=== PATIENT | male | born 1985 | race Caucasian/White ===

== ENCOUNTER 2017-05-13 11:21 | Emergency (ER) | payer BC, OTHER ==
[2017-05-13] MEDS ORDERED: Ketorolac 30 MG/ML SDV IM ONE (11:29)
--- NOTE | 2017-05-13 11:31 | EDM.PDOC ---
ED HPI GENERAL MEDICAL PROBLEM - General Chief Complaint: General Stated Complaint: PAIN IN RIBS FROM FALL Time Seen by Provider: 05/13/17 11:24 - History of Present Illness INITIAL COMMENTS - FREE TEXT/NARRATIVE: HISTORY AND PHYSICAL: History of present illness: Patient 31-year-old white male presents status post fall in which he injured his right ribs on Thanksgiving he denies other trauma or concern this injury was confined to his right ribs is worse with palpation and movement he denies abdominal pain nausea vomiting or other concern Review of systems: As per history of present illness and below otherwise all systems reviewed and negative. Past medical history: As per history of present illness and as reviewed below otherwise noncontributory. Surgical history: As per history of present illness and as reviewed below otherwise noncontributory. Social history: No reported history of drug or alcohol abuse. Family history: As per history of present illness and as reviewed below otherwise noncontributory. Physical exam: HEENT: Atraumatic, normocephalic, pupils reactive, negative for conjunctival pallor or scleral icterus, mucous membranes moist, throat clear, neck supple, nontender, trachea midline. Lungs: Clear to auscultation, breath sounds equal bilaterally, right ribs tender in the region of the sixth seventh and eighth ribs anterior axillary line crepitation over Heart: S1S2, regular, negative for clicks, rubs, or JVD. Abdomen: Soft, nondistended, nontender. Negative for masses or hepatosplenomegaly. Negative for costovertebral tenderness. Pelvis: Stable nontender. Genitourinary: Deferred. Rectal: Deferred. Extremities: Atraumatic, negative for cords or calf pain. Neurovascular unremarkable. Neuro: Awake, alert, oriented. Cranial nerves II through XII unremarkable. Cerebellum unremarkable. Motor and sensory unremarkable throughout. Exam nonfocal. Diagnostics: Chest x-ray right rib x-ray UA UDS Therapeutics: Toradol on 30 mg IM Impression: #1 right rib injury Definitive disposition and diagnosis as appropriate pending reevaluation and review of above. - Related Data Allergies Allergy/AdvReac Type Severity Reaction Status Date / Time pertussis vaccine,fluid Allergy Cannot Verified 05/13/17 11:31 [Pertussis Vaccine,Fluid] Remember Home Meds: Home Meds . [No Known Home Meds] 08/01/14 [History] Past Medical History - Past Health History Medical/Surgical History: Denies Medical/Surgical History Other Neuro History: brain shunt Social & Family History - Tobacco Use Smoking Status *Q: Never Smoker Second Hand Smoke Exposure: No - Alcohol Use Days Per Week of Alcohol Use: 0 - Recreational Drug Use Recreational Drug Use: No ED ROS GENERAL - Review of Systems Review Of Systems: ROS reveals no pertinent complaints other than HPI. ED EXAM, GENERAL - Physical Exam Exam: See Below (See dictation) Course - Vital Signs Last Recorded V/S: Last Vital Signs Temp 36.4 C 05/13/17 11:21 Pulse 82 05/13/17 11:21 Resp 18 05/13/17 11:21 BP 126/72 05/13/17 11:21 Pulse Ox 96 05/13/17 11:21 - Orders/Labs/Meds Orders: Active Orders 24 hr Category Date Time Status Chest 2V [CR] Stat Exams 05/13/17 11:29 Taken Ribs 2V wo Chest Rt [CR] Stat Exams 05/13/17 11:28 Taken UA W/MICROSCOPIC [URIN] Stat Lab 05/13/17 11:48 Results Labs: Laboratory Tests 05/13/17 05/13/17 Range/Units 11:48 11:48 Urine Color YELLOW Urine Appearance CLEAR Urine pH 6.0 (5.0-8.0) Ur Specific [place] >= 1.030 (1.001-1.035) Urine Protein 30 (NEGATIVE) mg/dL Urine Glucose (UA) NEGATIVE (NEGATIVE) mg/dL Urine Ketones NEGATIVE (NEGATIVE) mg/dL Urine Occult Blood NEGATIVE (NEGATIVE) Urine Nitrite NEGATIVE (NEGATIVE) Urine Bilirubin NEGATIVE (NEGATIVE) Urine Urobilinogen 0.2 (<2.0) EU/dL Ur Leukocyte Esterase NEGATIVE (NEGATIVE) Urine Opiates Screen NEGATIVE (NEGATIVE) Ur Oxycodone Screen NEGATIVE (NEGATIVE) Urine Methadone Screen NEGATIVE (NEGATIVE) Ur Barbiturates Screen NEGATIVE (NEGATIVE) Ur Phencyclidine Scrn NEGATIVE (NEGATIVE) Ur Amphetamine Screen NEGATIVE (NEGATIVE) U Methamphetamines Scrn NEGATIVE (NEGATIVE) U Benzodiazepines Scrn NEGATIVE (NEGATIVE) U Cocaine Metab Screen NEGATIVE (NEGATIVE) U Marijuana (THC) Screen NEGATIVE (NEGATIVE) Meds: Medications Discontinued Medications Generic Name Dose Route Start Last Admin Trade Name Freq PRN Reason Stop Dose Admin Ketorolac Tromethamine 30 mg 05/13/17 11:29 05/13/17 12:02 Toradol IM 05/13/17 11:30 30 mg ONETIME ONE Administration Departure - Departure Time of Disposition: 12:11 Disposition: Home, Self-Care 01 Condition: Good Clinical Impression: Rib injury - Discharge Information Referrals: PCP,None [Primary Care Provider] - Forms: ED Department Discharge Additional Instructions: The following information is given to patients seen in the emergency department who are being discharged to home. This information is to outline your options for follow-up care. We provide all patients seen in our emergency department with a follow-up referral. The need for follow-up, as well as the timing and circumstances, are variable depending upon the specifics of your emergency department visit. If you don't have a primary care physician on staff, we will provide you with a referral. We always advise you to contact your personal physician following an emergency department visit to inform them of the circumstance of the visit and for follow-up with them and/or the need for any referrals to a consulting specialist. The emergency department will also refer you to a specialist when appropriate. This referral assures that you have the opportunity for followup care with a specialist. All of these measure are taken in an effort to provide you with optimal care, which includes your followup. Under all circumstances we always encourage you to contact your private physician who remains a resource for coordinating your care. When calling for followup care, please make the office aware that this follow-up is from your recent emergency room visit. If for any reason you are refused follow-up, please contact the [facility] emergency department at and asked to speak to the emergency department charge nurse. [facility] [address] [place] [phone] Follow primary medical doctors and/or clinic above as discussed Ultram as prescribed. Return as needed as discussed - My Orders Last 24 Hours: My Active Orders 05/13/17 11:28 Ribs 2V wo Chest Rt [CR] Stat 05/13/17 11:29 Chest 2V [CR] Stat 05/13/17 11:48 UA W/MICROSCOPIC [URIN] Stat - Assessment/Plan Last 24 Hours: My Active Orders 05/13/17 11:28 Ribs 2V wo Chest Rt [CR] Stat 05/13/17 11:29 Chest 2V [CR] Stat 05/13/17 11:48 UA W/MICROSCOPIC [URIN] Stat
[2017-05-13 11:35] VITALS: BP 126/72
--- NOTE | 2017-05-14 15:25 | CR ---
EXAM DATE: 05/13/17 PATIENT'S AGE: 31 Patient: PROSPER MENENDEZ Facility: [place], [place] Site . Site : 1985 Study: XRay Chest [id number] 12:11:22 PM Ordering Physician: Abdi Becker Final Report: INDICATION: Pain. Short of breath. Technique: Two-view chest. Findings: Heart at the upper limit of normal in transverse diameter. Mediastinum and pulmonary vessels are normal. Lungs are clear. No pleural fluid. No acute bony abnormality. Ventriculoperitoneal shunt catheter overlies the right chest. Impression: No acute chest disease. Dictated by Malini Adams MD @ May 13 2017 12:31PM (Electronic Signature) Report Signed by Proxy. [facility]
--- NOTE | 2017-05-14 15:32 | CR ---
EXAM DATE: 05/13/17 PATIENT'S AGE: 31 Patient: PROSPER MENENDEZ Facility: [place], [place] Site . Site : 1985 Study: XRay Chest Right ribs [id number] 12:12:01 PM Ordering Physician: Adbi Becker Final Report: Pain oblique views of the right ribs. Ventriculoperitoneal shunt over the right chest. Oblique views of the right ribs demonstrate no evidence for a right rib fracture. Dictated by Any Rashid MD @ May 13 2017 12:36PM (Electronic Signature) Report Signed by Proxy. KEE
== END 2017-05-13 12:28 | disposition home or self-care (01) ==
LOC: MW.ED 11:21
DX: S29.9XXA Unspecified injury of thorax, initial encounter (principal); W19.XXXA Unspecified fall, initial encounter
CPT/HCPCS: 71020; 71100; 80305; 81001; 96372; 99283; J1885; 99282

== ENCOUNTER 2017-11-22 13:27 | Emergency (ER) | payer BC, OTHER ==
[2017-11-22] MEDS ORDERED: Albuterol/Ipratropium 3.0-0.5 MG/3 ML Neb Soln NEB ONE (13:55)
--- NOTE | 2017-11-22 14:01 | EDM.PDOC ---
ED HPI GENERAL MEDICAL PROBLEM - General Chief Complaint: Asthma Stated Complaint: ASTHMA ATTACK AT JOB Time Seen by Provider: 11/22/17 13:50 Source of Information: Reports: Patient History Limitations: Reports: No Limitations - History of Present Illness INITIAL COMMENTS - FREE TEXT/NARRATIVE: HISTORY AND PHYSICAL: History of present illness: [Comes to the emergency room complaining of an asthma attack that began while he was working today at a local [employer]. States that he was diagnosed with asthma several years ago, and did not suffer from asthma as a child. He carries an albuterol inhaler with him that several years ago. He used this inhaler and had minimal improvement of his symptoms. He is brought to the emergency room by a coworker. He states that he's been feeling well other than some head and chest congestion and increased cough lately. This cough has not been productive and has mostly been dry and hacking. No change in appetite or sleep patterns. He denies any other medical concerns at this time. No chronic medical conditions reported. Denies fever and chills. No blurred vision or earaches. Has had a runny nose that is mostly clear in color. No sore throat or difficulty swallowing. No neck pain. Has had wheezing present for the past 1 month. No shortness of breath or difficulty breathing. Denies abdominal pain nausea vomiting constipation and diarrhea. No swelling to his feet or lower legs. Mood has been stable, and he denies suicidal thoughts.] Review of systems: As per history of present illness and below otherwise all systems reviewed and negative. Past medical history: As per history of present illness and as reviewed below otherwise noncontributory. Surgical history: As per history of present illness and as reviewed below otherwise noncontributory. Social history: No reported history of drug or alcohol abuse. Family history: As per history of present illness and as reviewed below otherwise noncontributory. Physical exam: HEENT: Atraumatic, normocephalic. TMs are pearly garcia. Nares are patent and dry. Oral mucous membranes are pink and moist without tonsillar swelling erythema or exudate. Scant discharge present posterior oropharynx. Neck is supple, no lymphadenopathy. Lungs: lungs are clear to auscultation throughout,breath sounds equal bilaterally, chest nontender. No wheezing crackles or rales appreciated. Has a dry hacking sounding cough while in the ER. Heart: S1S2, regular, negative for clicks, rubs, or JVD. Abdomen: Soft, nondistended, nontender. Pelvis: Stable nontender. Genitourinary: Deferred. Rectal: Deferred. Extremities: Atraumatic. Full range of motion. Neurovascular unremarkable. Neuro: Awake, alert, oriented. Cranial nerves II through XII unremarkable. Cerebellum unremarkable. Motor and sensory unremarkable throughout. Exam nonfocal. Therapeutics: [DuoNeb] Impression: [Wheezing] Plan: [albuterol inhaler (#1) si-2 puffs q 4-6 hours prn cough/SOA/wheeze 0 RF's. Referral given to follow-up with PCP. Strict return precautions. Patient in agreement with today's plan.] Definitive disposition and diagnosis as appropriate pending reevaluation and review of above. Throat Pain Score (Numeric/FACES): 4 - Related Data Allergies Allergy/AdvReac Type Severity Reaction Status Date / Time pertussis vaccine,fluid Allergy Cannot Verified 11/22/17 13:38 [Pertussis Vaccine,Fluid] Remember Home Meds: Home Meds Albuterol [Ventolin HFA] 1 puff INH Q4H PRN 11/22/17 [History] Past Medical History - Past Health History Medical/Surgical History: Denies Medical/Surgical History Cardiovascular History: Reports: Other (See Below) Other Cardiovascular History: [employer] Shunt Respiratory History: Reports: Asthma Neurological History: Reports: Other (See Below) Other Neuro History: brain shunt - Infectious Disease History Infectious Disease History: Reports: Chicken Pox Social & Family History - Family History Family Medical History: Noncontributory - Tobacco Use Smoking Status *Q: Never Smoker - Caffeine Use Caffeine Use: Reports: Energy Drinks, Soda - Recreational Drug Use Recreational Drug Use: No ED ROS GENERAL - Review of Systems Review Of Systems: ROS reveals no pertinent complaints other than HPI. ED EXAM, GENERAL - Physical Exam Exam: See Below Course - Vital Signs Last Recorded V/S: Last Vital Signs Temp 98.0 F 11/22/17 15:05 Pulse 77 11/22/17 15:05 Resp 18 11/22/17 15:05 BP 124/72 11/22/17 15:05 Pulse Ox 96 11/22/17 15:05 - Orders/Labs/Meds Orders: Active Orders 24 hr Category Date Time Status RT Aerosol Therapy [RC] ASDIRECTED Care 11/22/17 13:55 Active Meds: Medications Discontinued Medications Generic Name Dose Route Start Last Admin Trade Name Gen[place] PRN Reason Stop Dose Admin Albuterol/Ipratropium 3 ml 11/22/17 13:55 11/22/17 14:35 Duoneb 3.0-0.5 Mg/3 Ml NEB 11/22/17 13:56 3 ml ONETIME ONE Administration Departure - Departure Time of Disposition: 14:30 Disposition: Home, Self-Care 01 Condition: Good Clinical Impression: Wheezing - Discharge Information Instructions: Bronchospasm, Adult Referrals: PCP,None [Primary Care Provider] - Forms: ED Department Discharge Additional Instructions: The following information is given to patients seen in the emergency department who are being discharged to home. This information is to outline your options for follow-up care. We provide all patients seen in our emergency department with a follow-up referral. The need for follow-up, as well as the timing and circumstances, are variable depending upon the specifics of your emergency department visit. If you don't have a primary care physician on staff, we will provide you with a referral. We always advise you to contact your personal physician following an emergency department visit to inform them of the circumstance of the visit and for follow-up with them and/or the need for any referrals to a consulting specialist. The emergency department will also refer you to a specialist when appropriate. This referral assures that you have the opportunity for follow-up care with a specialist. All of these measure are taken in an effort to provide you with optimal care, which includes your follow-up. Under all circumstances we always encourage you to contact your private physician who remains a resource for coordinating your care. When calling for follow-up care, please make the office aware that this follow-up is from your recent emergency room visit. If for any reason you are refused follow-up, please contact the [facility] emergency department at and asked to speak to the emergency department charge nurse. [facility] [address] [place] [phone] Establish care with your local primary care provider at the clinic listed above in follow-up there in 48-72 hours. Use inhaler as prescribed. Return to ER as needed as discussed. - My Orders Last 24 Hours: My Active Orders 11/22/17 13:55 RT Aerosol Therapy [RC] ASDIRECTED - Assessment/Plan Last 24 Hours: My Active Orders 11/22/17 13:55 RT Aerosol Therapy [RC] ASDIRECTED
[2017-11-22 15:45] VITALS: BP 124/72
== END 2017-11-22 15:05 | disposition home or self-care (01) ==
LOC: MW.ED 13:27
DX: R06.2 Wheezing (principal); Z88.8 Allergy status to other drugs, medicaments and biological substances; Z88.7 Allergy status to serum and vaccine
CPT/HCPCS: 94640; 99283; 99283-25

== ENCOUNTER 2018-10-14 11:14 | Emergency (ER) | payer BC, OTHER ==
[2018-10-14] MEDS ORDERED: Ketorolac 30 MG/ML SDV IVPUSH ONE (11:37)
[2018-10-14] MEDS ORDERED: Ondansetron 4 MG/2 ML SDV IVPUSH ONE (11:37)
[2018-10-14] MEDS ORDERED: Sodium Chloride 0.9% 1,000 ML IV ONE (11:37)
--- NOTE | 2018-10-14 11:58 | EDM.PDOC ---
ED HPI GENERAL MEDICAL PROBLEM - General Chief Complaint: Abdominal Pain Stated Complaint: POSSIBLE HERNIA Time Seen by Provider: 10/14/18 11:17 Source of Information: Reports: Patient History Limitations: Reports: No Limitations - History of Present Illness INITIAL COMMENTS - FREE TEXT/NARRATIVE: HISTORY AND PHYSICAL: History of present illness: Patient is a 33-year-old male who presents to the ED today with concern of lower abdominal pain 1 week. Patient states the pain is worse when he is moving at work and better when he sits down and rests. Patient rates his pain a 5 out of 10. Patient denies any prior abdominal surgeries. Patient has concerning for hernia due to the pain being increased with movement. Patient denies any scrotal pain or tenderness. Patient states his bowel movements have been normal for him. Patient denies fever, chills, chest pain, shortness of breath, or cough. Denies headache, neck stiff ness, change in vision, syncope, or near syncope. Denies nausea, vomiting, diarrhea, constipation, or dysuria. Has not noted any blood in urine/stool. Patient has been eating and drinking appropriately. Review of systems: As per history of present illness and below otherwise all systems reviewed and negative. Past medical history: As per history of present illness and as reviewed below otherwise noncontributory. Surgical history: As per history of present illness and as reviewed below otherwise noncontributory. Social history: See social history for further information Family history: As per history of present illness and as reviewed below otherwise noncontributory. Physical exam: General: Patient is alert, oriented, and in no acute distress. Patient sitting comfortably on exam table. HEENT: Atraumatic, normocephalic, pupils equal and reactive bilaterally, negative for conjunctival pallor or scleral icterus, mucous membranes moist, TMs normal bilaterally, throat clear, neck supple, nontender, trachea midline. No drooling or trismus noted. No meningeal signs. No hot potato voice noted. Lungs: Clear to auscultation, breath sounds equal bilaterally, chest nontender. Heart: S1S2, regular rate and rhythm without overt murmur Abdomen: Moderate pain to palpation of the right lower and left lower quadrant with guarding. Negative rebound tenderness. Positive bowel sounds throughout all quadrants. Otherwise, soft, nondistended. Negative for masses or hepatosplenomegaly. Negative for costovertebral tenderness. Pelvis: Stable nontender. Genitourinary: Deferred. Rectal: Deferred. Skin: Intact, warm, dry. No lesions or rashes noted. Extremities: Atraumatic, negative for cords or calf pain. Neurovascular unremarkable. Neuro: Awake, alert, oriented. Cranial nerves II through XII unremarkable. Cerebellum unremarkable. Motor and sensory unremarkable throughout. Exam nonfocal. Notes: Discussed the importance for follow-up with a primary care provider. Voices understanding and is agreeable to plan of care. Denies any further questions or concerns at this time. Diagnostics: CBC, CMP, UA, lipase, abdominal pelvic CT Therapeutics: Saline, Zofran, Toradol Prescription: None Impression: Abdominal pain, unspecified Plan: 1. You can alternate ibuprofen or Tylenol as directed for pain and discomfort. 2. Follow-up with your primary care provider as discussed. 3. Return to the ED as needed and as discussed. Definitive disposition and diagnosis as appropriate pending reevaluation and review of above. 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 Respiratory History: Reports: Asthma Gastrointestinal History: Reports: None Genitourinary History: Reports: None Musculoskeletal History: Reports: None Neurological History: Reports: Other (See Below) Other Neuro History: brain shunt Psychiatric History: Reports: Depression Endocrine/Metabolic History: Reports: None Hematologic History: Reports: None Immunologic History: Reports: None Oncologic (Cancer) History: Reports: None Dermatologic History: Reports: None - Infectious Disease History Infectious Disease History: Reports: Chicken Pox Social & Family History - Family History Family Medical History: Noncontributory - Tobacco Use Smoking Status *Q: Never Smoker Second Hand Smoke Exposure: No - Caffeine Use Caffeine Use: Reports: Coffee - Recreational Drug Use Recreational Drug Use: No ED ROS GENERAL - Review of Systems Review Of Systems: ROS reveals no pertinent complaints other than HPI. ED EXAM, GI/ABD - Physical Exam Exam: See Below (See dictation) Course - Vital Signs Last Recorded V/S: Last Vital Signs Temp 36.6 C 10/14/18 11:23 Pulse 72 10/14/18 12:51 Resp 16 10/14/18 12:51 BP 116/66 10/14/18 12:51 Pulse Ox 95 10/14/18 12:51 - Orders/Labs/Meds Labs: Laboratory Tests 10/14/18 10/14/18 10/14/18 Range/Units 11:48 11:48 11:55 WBC 5.71 (4.0-11.0) K/uL RBC 5.47 (4.50-5.90) M/uL Hgb 15.9 (13.0-17.0) g/dL Hct 46.5 (38.0-50.0) % MCV 85.0 (80.0-98.0) fL MCH 29.1 (27.0-32.0) pg MCHC 34.2 (31.0-37.0) g/dL RDW Std Deviation 40.2 (28.0-62.0) fl RDW Coeff of Taz 13 (11.0-15.0) % Plt Count 221 (150-400) K/uL MPV 10.10 (7.40-12.00) fL Neut % (Auto) 64.7 (48.0-80.0) % Lymph % (Auto) 22.6 (16.0-40.0) % Cascade % (Auto) 10.5 (0.0-15.0) % Eos % (Auto) 1.8 (0.0-7.0) % Baso % (Auto) 0.4 (0.0-1.5) % Neut # (Auto) 3.7 (1.4-5.7) K/uL Lymph # (Auto) 1.3 (0.6-2.4) K/uL Cascade # (Auto) 0.6 (0.0-0.8) K/uL Eos # (Auto) 0.1 (0.0-0.7) K/uL Baso # (Auto) 0.0 (0.0-0.1) K/uL Nucleated RBC % 0.0 /100WBC Nucleated RBCs # 0 K/uL Sodium 143 (136-148) mmol/L Potassium 3.9 (3.5-5.1) mmol/L Chloride 108 H (98-107) mmol/L Carbon Dioxide 28.9 (21.0-32.0) mmol/L BUN 17 (7.0-18.0) mg/dL Creatinine 1.0 (0.8-1.3) mg/dL Est Cr Clr Drug Dosing 94.81 mL/min Estimated GFR (MDRD) > 60.0 ml/min Glucose 100 (74-106) mg/dL Calcium 9.3 (8.5-10.1) mg/dL Total Bilirubin 0.4 (0.2-1.0) mg/dL AST 22 (15-37) IU/L ALT 54 (14-63) IU/L Alkaline Phosphatase 54 (46-116) U/L Total Protein 7.2 (6.4-8.2) g/dL Albumin 3.9 (3.4-5.0) g/dL Globulin 3.3 (2.6-4.0) g/dL Albumin/Globulin Ratio 1.2 (0.9-1.6) Lipase 145 (73-393) U/L Urine Color YELLOW Urine Appearance CLEAR Urine pH 7.0 (5.0-8.0) Ur Specific [place] 1.015 (1.001-1.035) Urine Protein NEGATIVE (NEGATIVE) mg/dL Urine Glucose (UA) NEGATIVE (NEGATIVE) mg/dL Urine Ketones NEGATIVE (NEGATIVE) mg/dL Urine Occult Blood NEGATIVE (NEGATIVE) Urine Nitrite NEGATIVE (NEGATIVE) Urine Bilirubin NEGATIVE (NEGATIVE) Urine Urobilinogen 0.2 (<2.0) EU/dL Ur Leukocyte Esterase NEGATIVE (NEGATIVE) Meds: Medications Discontinued Medications Generic Name Dose Route Start Last Admin Trade Name Freq PRN Reason Stop Dose Admin Sodium Chloride 1,000 mls @ 999 mls/hr 10/14/18 11:37 10/14/18 11:54 Normal Saline IV 10/14/18 12:37 999 mls/hr BOLUS ONE Administration Iopamidol 90 ml 10/14/18 13:11 10/14/18 13:11 Isovue Multipack-370 (76%) IVPUSH 10/14/18 13:12 90 ml ONETIME STA Administration Ketorolac Tromethamine 30 mg 10/14/18 11:37 10/14/18 11:54 Toradol IVPUSH 10/14/18 11:38 30 mg ONETIME ONE Administration Ondansetron HCl 4 mg 10/14/18 11:37 10/14/18 11:56 Zofran IVPUSH 10/14/18 11:38 4 mg ONETIME ONE Administration Departure - Departure Time of Disposition: 13:58 Disposition: Home, Self-Care 01 Clinical Impression: Abdominal pain Qualifiers: Abdominal location: lower abdomen, unspecified Qualified Code(s): R10.30 - Lower abdominal pain, unspecified - Discharge Information Referrals: PCP,None [Primary Care Provider] - Forms: ED Department Discharge Additional Instructions: The following information is given to patients seen in the emergency department who are being discharged to home. This information is to outline your options for follow-up care. We provide all patients seen in our emergency department with a follow-up referral. The need for follow-up, as well as the timing and circumstances, are variable depending upon the specifics of your emergency department visit. If you don't have a primary care physician on staff, we will provide you with a referral. We always advise you to contact your personal physician following an emergency department visit to inform them of the circumstance of the visit and for follow-up with them and/or the need for any referrals to a consulting specialist. The emergency department will also refer you to a specialist when appropriate. This referral assures that you have the opportunity for follow-up care with a specialist. All of these measure are taken in an effort to provide you with optimal care, which includes your follow-up. Under all circumstances we always encourage you to contact your private physician who remains a resource for coordinating your care. When calling for follow-up care, please make the office aware that this follow-up is from your recent emergency room visit. If for any reason you are refused follow-up, please contact the [facility] Emergency Department at and asked to speak to the emergency department charge nurse. [facility] Primary Care [address] [place] [id number] [address] [place] [address] 1. You can alternate ibuprofen or Tylenol as directed for pain and discomfort. 2. Follow-up with your primary care provider as discussed. 3. Return to the ED as needed and as discussed.
[2018-10-14 12:34] LABS: CHLORIDE,CL 108 mmol/L (98-107); SODIUM,NA 143 mmol/L (136-148)
[2018-10-14] MEDS ORDERED: Iopamidol 755 MG/ML 500 ML Multipack Bottle IVPUSH STA (13:11)
--- NOTE | 2018-10-14 13:54 | CT ---
CT of the abdomen and pelvis with contrast. HISTORY: Pain TECHNIQUE: Axial CT images were obtained of the abdomen and pelvis following administration of 90 mL of Isovue-370 in the left antecubital fossa without complication. Coronal and sagittal reconstructions obtained. FINDINGS: The lung bases are clear, no pleural effusion. Tiny hypodensity within the posterior right hepatic lobe, present on the previous CT from 2013. Gallbladder is normal. Spleen, adrenal glands, pancreas appear normal. 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 The kidneys enhance and function symmetrically without evidence of obstructive uropathy. The large and small bowel are normal in caliber without evidence of obstruction. No focal pericolonic inflammation or stranding. The urinary bladder is normal. No bulky pelvic lymphadenopathy or free pelvic fluid. No suspicious osseous abnormalities identified. IMPRESSION: 1. No acute findings noted within the pelvis. 2. Partially visualized DISTRIBUTION OPERATIONS MANAGER shunt tubing noted.
[2018-10-14 14:50] VITALS: BP 115/74
== END 2018-10-14 14:12 | disposition home or self-care (01) ==
LOC: MW.ED 11:14
DX: R10.31 Right lower quadrant pain (principal); R10.32 Left lower quadrant pain; F32.9 Major depressive disorder, single episode, unspecified; J45.909 Unspecified asthma, uncomplicated; Z88.7 Allergy status to serum and vaccine
CPT/HCPCS: 36415; 74177; 80053; 81003; 83690; 85025; 96360; 96374; 96375; 99284; J1885; J2405; J7040; Q9967; 99283

== ENCOUNTER 2018-12-31 01:36 | Emergency (ER) | payer OTHER ==
[2018-12-31 03:15] VITALS: BP 129/72
[2018-12-31] MEDS ORDERED: methylPREDNISolone Sodium Succinate 125 MG/2 ML SDV IM ONE (03:36)
[2018-12-31] MEDS ORDERED: Albuterol/Ipratropium 3.0-0.5 MG/3 ML Neb Soln NEB ONE (03:36)
--- NOTE | 2018-12-31 04:54 | EDM.PDOC ---
ED HPI GENERAL MEDICAL PROBLEM - General Chief Complaint: Respiratory Problem Stated Complaint: ASTHMA ATTACK Time Seen by Provider: 12/31/18 02:00 - History of Present Illness INITIAL COMMENTS - FREE TEXT/NARRATIVE: HISTORY AND PHYSICAL: History of present illness: Patient 33-year-old white male history of asthma presents with a concern of shortness of breath and asthmatic exacerbation Review of systems: As per history of present illness and below otherwise all systems reviewed and negative. Past medical history: As per history of present illness and as reviewed below otherwise noncontributory. Surgical history: As per history of present illness and as reviewed below otherwise noncontributory. Social history: No reported history of drug or alcohol abuse. Family history: As per history of present illness and as reviewed below otherwise noncontributory. Physical exam: HEENT: Atraumatic, normocephalic, pupils reactive, negative for conjunctival pallor or scleral icterus, mucous membranes moist, throat clear, neck supple, nontender, trachea midline. Lungs: Bilateral and next per wheezing noted no crackles or rhonchi, breath sounds equal bilaterally, chest nontender. Heart: S1S2, regular, negative for clicks, rubs, or JVD. Abdomen: Soft, nondistended, nontender. Negative for masses or hepatosplenomegaly. Negative for costovertebral tenderness. Pelvis: Stable nontender. Genitourinary: Deferred. Rectal: Deferred. Extremities: Atraumatic, negative for cords or calf pain. Neurovascular unremarkable. Neuro: Awake, alert, oriented. Cranial nerves II through XII unremarkable. Cerebellum unremarkable. Motor and sensory unremarkable throughout. Exam nonfocal. Diagnostics: Chest x-ray Therapeutics: Albuterol ipratropium nebulizer Solu-Medrol 25 mg IM Impression: #1 asthmatic exacerbation Definitive disposition and diagnosis as appropriate pending reevaluation and review of above. 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 Respiratory History: Reports: Asthma Gastrointestinal History: Reports: None Genitourinary History: Reports: None Musculoskeletal History: Reports: None Neurological History: Reports: Other (See Below) Other Neuro History: brain shunt Psychiatric History: Reports: Depression Endocrine/Metabolic History: Reports: None Hematologic History: Reports: None Immunologic History: Reports: None Oncologic (Cancer) History: Reports: None Dermatologic History: Reports: None - Infectious Disease History Infectious Disease History: Reports: None Social & Family History - Family History Family Medical History: Noncontributory - Tobacco Use Smoking Status *Q: Never Smoker - Caffeine Use Caffeine Use: Reports: None - Recreational Drug Use Recreational Drug Use: No ED ROS GENERAL - Review of Systems Review Of Systems: ROS reveals no pertinent complaints other than HPI. ED EXAM, GENERAL - Physical Exam Exam: See Below (See dictation) Course - Vital Signs Last Recorded V/S: Last Vital Signs Temp 36.2 C 12/31/18 01:42 Pulse 74 12/31/18 01:42 Resp 18 12/31/18 01:42 BP 129/72 12/31/18 01:42 Pulse Ox 98 12/31/18 01:42 - Orders/Labs/Meds Orders: Active Orders 24 hr Category Date Time Status RT Aerosol Therapy [RC] ASDIRECTED Care 12/31/18 03:36 Active Chest 1V Frontal [CR] Stat Exams 12/31/18 03:36 Taken Meds: Medications Discontinued Medications Generic Name Dose Route Start Last Admin Trade Name Leonardoq PRN Reason Stop Dose Admin Albuterol/Ipratropium 3 ml 12/31/18 03:36 12/31/18 02:00 Duoneb 3.0-0.5 Mg/3 Ml NEB 12/31/18 03:37 3 ml ONETIME ONE Administration Methylprednisolone Sodium Succinate 125 mg 12/31/18 03:36 12/31/18 02:30 Solu-Medrol IM 12/31/18 03:37 125 mg ONETIME ONE Administration Departure - Departure Time of Disposition: 01:00 Disposition: Home, Self-Care 01 Condition: Good Clinical Impression: Exacerbation of asthma - Discharge Information Referrals: PCP,None [Primary Care Provider] - Forms: ED Department Discharge - My Orders Last 24 Hours: My Active Orders 12/31/18 03:36 RT Aerosol Therapy [RC] ASDIRECTED Chest 1V Frontal [CR] Stat - Assessment/Plan Last 24 Hours: My Active Orders 12/31/18 03:36 RT Aerosol Therapy [RC] ASDIRECTED Chest 1V Frontal [CR] Stat
--- NOTE | 2018-12-31 10:01 | CR ---
EXAM DATE: 12/31/18 PATIENT'S AGE: 33 Patient: PROSPER MENENDEZ Facility: [facility] : 1985 Study: XRay-Chest -12/31/2018 2:14:42 AM Ordering Physician: PROSPER PARK Final Report: INDICATION: Shortness of breath TECHNIQUE: Chest 1 view COMPARISON: None FINDINGS: Cardiovascular and mediastinum: Heart size and vasculature are normal in caliber and appearance. Lungs and pleural spaces: Lungs are clear. No sign of infiltrate or mass. No sign of pleural effusion. No pneumothorax. Bones and soft tissues: Tubing overlies the right chest and upper abdomen. IMPRESSION: No acute cardiopulmonary abnormality. Dictated by Walter Price MD @ Dec 31 2018 2:23AM Signed by: Walter Price MD @12/31/2018 2:24:57 AM (Electronic Signature) Report Signed by Proxy. [facility]
== END 2018-12-31 02:43 | disposition home or self-care (01) ==
LOC: MW.ED 01:36
DX: J45.901 Unspecified asthma with (acute) exacerbation (principal); Z88.8 Allergy status to other drugs, medicaments and biological substances
CPT/HCPCS: 71045; 96372; 99285; J2930; J7620-GY

== ENCOUNTER 2019-09-07 22:48 | Emergency (ER) | payer OTHER ==
--- NOTE | 2019-09-07 23:25 | CR ---
HISTORY: Asthma exacerbation COMPARISON: 12/31/2018 FINDINGS: A portable erect AP view of the chest was obtained at 23 0 6 hours. The lungs remain clear. No focal or diffuse infiltrates are present. The right-sided ventriculoperitoneal shunt catheter is again seen and appears to be intact. The heart remains normal in size. Again seen is a moderate right pericardial fat pad. The mediastinum is normal in appearance. The osseous structures are normal in appearance for the patient`s age. IMPRESSION: No active disease seen in the chest. Dictated by Kenny Munoz MD @ Sep 07 2019 11:19PM Signed by Dr. Kenny Munoz @ Sep 07 2019 11:22PM
[2019-09-07] MEDS ORDERED: Albuterol/Ipratropium 3.0-0.5 MG/3 ML Neb Soln NEB ONE (23:27)
--- NOTE | 2019-09-07 23:31 | EDM.PDOC ---
ED HPI GENERAL MEDICAL PROBLEM - General Chief Complaint: Respiratory Problem Stated Complaint: NOT FEELING WELL Time Seen by Provider: 09/07/19 23:29 Source of Information: Reports: Patient History Limitations: Reports: No Limitations - History of Present Illness INITIAL COMMENTS - FREE TEXT/NARRATIVE: 34-year-old male history of asthma presents to the emergency room with wheezing at home and shortness of breath Duration: Getting Worse Location: Reports: Chest Severity: Mild Improves with: Reports: None Worsens with: Reports: None Associated Symptoms: Reports: No Other Symptoms - Related Data Allergies Allergy/AdvReac Type Severity Reaction Status Date / Time pertussis vaccine,fluid Allergy Cannot Verified 09/07/19 23:09 [Pertussis Vaccine,Fluid] Remember Home Meds: Home Meds Albuterol [Ventolin HFA] 1 puff INH Q4H PRN 11/22/17 [History] ALPRAZolam [Alprazolam] 1 tab PO DAILY 09/07/19 [History] Escitalopram [Lexapro] 1 tab PO DAILY 09/07/19 [History] Past Medical History - Past Health History Medical/Surgical History: Denies Medical/Surgical History HEENT History: Reports: None Cardiovascular History: Reports: Other (See Below) 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 Respiratory History: Reports: Asthma Gastrointestinal History: Reports: None Genitourinary History: Reports: None Musculoskeletal History: Reports: None Neurological History: Reports: Other (See Below) Other Neuro History: brain shunt Psychiatric History: Reports: Depression Endocrine/Metabolic History: Reports: None Hematologic History: Reports: None Immunologic History: Reports: None Oncologic (Cancer) History: Reports: None Dermatologic History: Reports: None - Infectious Disease History Infectious Disease History: Reports: None Social & Family History - Family History Family Medical History: Noncontributory - Tobacco Use Smoking Status *Q: Never Smoker - Caffeine Use Caffeine Use: Reports: None - Recreational Drug Use Recreational Drug Use: No ED ROS GENERAL - Review of Systems Review Of Systems: See Below Constitutional: Reports: No Symptoms HEENT: Reports: No Symptoms Respiratory: Reports: Shortness of Breath, Wheezing Cardiovascular: Reports: No Symptoms Endocrine: Reports: No Symptoms GI/Abdominal: Reports: No Symptoms : Reports: No Symptoms Musculoskeletal: Reports: No Symptoms Skin: Reports: No Symptoms Neurological: Reports: No Symptoms Psychiatric: Reports: No Symptoms Hematologic/Lymphatic: Reports: No Symptoms Immunologic: Reports: No Symptoms ED EXAM, GENERAL - Physical Exam Exam: See Below Exam Limited By: No Limitations General Appearance: Alert, WD/WN, Mild Distress Eye Exam: Bilateral Eye: Normal Fundi, Normal Inspection, Proptosis Ears: Normal External Exam, Normal Canal, Normal TMs Ear Exam: Bilateral Ear: Auricle Normal, Canal Normal Nose: Normal Inspection, Normal Mucosa Throat/Mouth: Normal Inspection, Normal Lips Head: Atraumatic, Normocephalic Neck: Normal Inspection Respiratory/Chest: Lungs Clear, No Accessory Muscle Use Cardiovascular: Normal Peripheral Pulses, Regular Rate, Rhythm GI/Abdominal: Normal Bowel Sounds (Male) Exam: Deferred Rectal (Males) Exam: Deferred Back Exam: Normal Inspection, Full Range of Motion Extremities: Normal Inspection, Normal Range of Motion, No Pedal Edema, Normal Capillary Refill Neurological: Alert, Oriented, CN II-XII Intact, Normal Reflexes, No Motor/ Sensory Deficits Psychiatric: Normal Affect, Normal Mood Skin Exam: Warm, Dry, Intact Lymphatic: No Adenopathy Course - Vital Signs Last Recorded V/S: Last Vital Signs Temp 98.8 F 09/07/19 23:02 Pulse 87 09/07/19 23:02 Resp 16 09/07/19 23:02 BP 126/77 09/07/19 23:02 Pulse Ox 96 09/07/19 23:02 - Orders/Labs/Meds Orders: Active Orders 24 hr Category Date Time Status RT Aerosol Therapy [RC] ASDIRECTED Care 09/07/19 23:28 Active Isolation [COMM] Routine Oth 09/07/19 23:30 Active Meds: Medications Discontinued Medications Generic Name Dose Route Start Last Admin Trade Name Genaro PRN Reason Stop Dose Admin Albuterol/Ipratropium 3 ml 09/07/19 23:27 09/07/19 23:40 Duoneb 3.0-0.5 Mg/3 Ml NEB 09/07/19 23:28 3 ml ONETIME ONE Administration Departure - Departure Time of Disposition: 00:26 Disposition: Home, Self-Care 01 Condition: Good Clinical Impression: Acute asthma - Discharge Information Instructions: Asthma, Adult, Asthma, Adult, [id number] Referrals: Lobo Hameed MD [Primary Care Provider] - Forms: ED Department Discharge Additional Instructions: Patient is to take his medication as prescribed Patient is to follow-up with his primary care physician within the next 2 to 3 days Patient is to return to the emergency room for severe shortness of breath and or chest pain Sepsis Event Note - Evaluation Sepsis Screening Result: No Definite Risk - Focused Exam Vital Signs: Vital Signs Temp Pulse Resp BP Pulse Ox 09/07/19 23:02 98.8 F 87 16 126/77 96 Date Exam was Performed: 09/08/19 Time Exam was Performed: 00:24 - My Orders Last 24 Hours: My Active Orders 09/07/19 23:28 RT Aerosol Therapy [RC] ASDIRECTED 09/07/19 23:30 Isolation [COMM] Routine - Assessment/Plan Last 24 Hours: My Active Orders 09/07/19 23:28 RT Aerosol Therapy [RC] ASDIRECTED 09/07/19 23:30 Isolation [COMM] Routine
[2019-09-08 00:44] VITALS: BP 108/72; PULSE 83
== END 2019-09-08 00:36 | disposition home or self-care (01) ==
LOC: MW.ED 22:48
DX: J45.901 Unspecified asthma with (acute) exacerbation (principal); Z88.7 Allergy status to serum and vaccine
CPT/HCPCS: 71045; 71045-26; 87804; 94642; 99285-25; J7620-GY

== ENCOUNTER 2021-01-01 08:56 | Emergency (ER) | payer OTHER ==
[2021-01-01] MEDS ORDERED: Sodium Chloride 0.9% 2.5 ML Syringe FLUSH PRN (09:17)
[2021-01-01] MEDS ORDERED: Sodium Chloride 0.9% 10 ML Syringe FLUSH PRN (09:17)
--- NOTE | 2021-01-01 09:21 | EDM.PDOC ---
ED HPI GENERAL MEDICAL PROBLEM - General Chief Complaint: Neurological Problem Stated Complaint: PAIN IN NECK AND BACK Time Seen by Provider: 01/01/21 09:03 - History of Present Illness INITIAL COMMENTS - FREE TEXT/NARRATIVE: History of present illness: [] The patient got up went to the bathroom came back to bed. 20 minutes later he could not move. He has a headache and neck pain as well. The patient has a HAT MODEL shunt as an infant. It was replaced when he was 8 years old. This was done in [place]. He has not had the shunt replaced since. The patient is never felt like this before. The patient has no other symptoms right now. Review of systems: As per history of present illness and below otherwise all systems reviewed and negative. Past medical history: As per history of present illness and as reviewed below otherwise noncontributory. Surgical history: As per history of present illness and as reviewed below otherwise noncontributory. Social history: No reported history of drug or alcohol abuse. Family history: As per history of present illness and as reviewed below otherwise noncontributory. Physical exam: Constitutional - well developed, well-nourished and in no acute distress HEENT - normocephalic, no evidence of trauma - external nose and mouth normal - no mass in neck and no JVD - mucosae moist EYES - full EOM, PERRL, no icterus - no evidence of inflammation, injection, or drainage Respiratory - no respiratory distress, equal bilateral expansion, lungs clear to auscultation and no abnormal lung sounds Cardiovascular - Regular Rhythm with S1 and S2 appreciated and no murmur, gallop or rub. GI - abdomen soft without distension or organomegaly - normal bowel sounds - no guard or rebound Musculoskeletal no gross deformity of long bones or joints - no tenderness, swelling or edema Neurologic - Alert and oriented times four - CN II-XII grossly intact - motor sensory and coordination symmetric but he does not resist gravity along with upper or lower extremities. Deep tendon reflexes are hyperreflexic both at the antecubitum and the patella. Psychiatric - appropriate mood and affect with normal thought content Hematologic - No petechiae or purpura - mucosa appropriate color and sclera not pale - normal nail bed color and refill Integument - no rash or evidence of trauma - normal turgor Diagnostics: [] Therapeutics: [] Impression: [] Plan: [] Definitive disposition and diagnosis as appropriate pending reevaluation and review of above. - Related Data Allergies Allergy/AdvReac Type Severity Reaction Status Date / Time pertussis vaccine,fluid Allergy Cannot Verified 01/01/21 09:10 [Pertussis Vaccine,Fluid] Remember Home Meds: Home Meds Albuterol [Ventolin HFA] 1 puff INH Q4H PRN 11/22/17 [History] ALPRAZolam [Alprazolam] 1 tab PO DAILY 09/07/19 [History] Escitalopram [Lexapro] 1 tab PO DAILY 09/07/19 [History] Past Medical History - Past Health History Medical/Surgical History: Denies Medical/Surgical History HEENT History: Reports: None Cardiovascular History: Reports: Other (See Below) Other Cardiovascular History: HAT MODEL Shunt Respiratory History: Reports: Asthma Gastrointestinal History: Reports: None Genitourinary History: Reports: None Musculoskeletal History: Reports: None Neurological History: Reports: Other (See Below) Other Neuro History: brain shunt Psychiatric History: Reports: Depression Endocrine/Metabolic History: Reports: None Hematologic History: Reports: None Immunologic History: Reports: None Oncologic (Cancer) History: Reports: None Dermatologic History: Reports: None - Infectious Disease History Infectious Disease History: Reports: None Social & Family History - Family History Family Medical History: No Pertinent Family History - Tobacco Use Tobacco Use Status *Q: Never Tobacco User - Caffeine Use Caffeine Use: Reports: None - Recreational Drug Use Recreational Drug Use: No ED ROS GENERAL - Review of Systems Review Of Systems: Comprehensive ROS is negative, except as noted in HPI. ED EXAM, GENERAL - Physical Exam Exam: See Below Free Text/Narrative:: My physical exam as in the HPI #1 Interpretation EKG Interpretation Comments: EKG sinus rhythm with 64 heart rate GA 177 [place] [address] and T no prior for comparison impression essentially normal EKG Course - Vital Signs Text/Narrative:: Once patient was reassured that his shunt was not malfunctioning and even before that he started moving about. He is able to move normally now but because of his hypomagnesemia we will review diet and we will give 2 g IV here and see if that makes him feel better. Is quite likely that the patient because of his prior shunt was quite worried about the shunt when he had neck and head pain and probably quite frightened and dyspnea converted to his inability to adequately move about. 11:52 AM patient feels better and magnesium is round and. Last Recorded V/S: Last Vital Signs Temp 36.1 C 01/01/21 09:10 Pulse 60 01/01/21 11:45 Resp 16 01/01/21 11:45 BP 115/64 01/01/21 11:45 Pulse Ox 95 01/01/21 11:45 - Orders/Labs/Meds Orders: Active Orders 24 hr Category Date Time Status EKG Documentation Completion [RC] AM Care 01/01/21 09:17 Active Sodium Chloride 0.9% [Saline Flush] Med 01/01/21 09:17 Active 10 ml FLUSH ASDIRECTED PRN Sodium Chloride 0.9% [Saline Flush] Med 01/01/21 09:17 Active 2.5 ml FLUSH ASDIRECTED PRN Saline Lock Insert [OM.PC] Stat Oth 01/01/21 09:17 Ordered Medication Orders Sodium Chloride (Sodium Chloride 0.9% 10 Ml Syringe) 10 ml FLUSH ASDIRECTED PRN PRN Reason: Keep Vein Open Last Admin: 01/01/21 09:22 Dose: 10 ml Documented by: [id number] Sodium Chloride (Sodium Chloride 0.9% 2.5 Ml Syringe) 2.5 ml FLUSH ASDIRECTED PRN PRN Reason: Keep Vein Open Last Admin: 01/01/21 09:22 Dose: 2.5 ml Documented by: [id number] Labs: Laboratory Tests 01/01/21 01/01/21 Range/Units 09:25 09:25 WBC 5.59 (4.0-11.0) K/uL RBC 5.60 (4.50-5.90) M/uL Hgb 16.2 (13.0-17.0) g/dL Hct 47.4 (38.0-50.0) % MCV 84.6 (80.0-98.0) fL MCH 28.9 (27.0-32.0) pg MCHC 34.2 (31.0-37.0) g/dL RDW Std Deviation 39.9 (28.0-62.0) fl RDW Coeff of Taz 13 (11.0-15.0) % Plt Count 224 (150-400) K/uL MPV 10.60 (7.40-12.00) fL Neut % (Auto) 49.9 (48.0-80.0) % Lymph % (Auto) 35.1 (16.0-40.0) % [place] % (Auto) 11.6 (0.0-15.0) % Eos % (Auto) 3.0 (0.0-7.0) % Baso % (Auto) 0.4 (0.0-1.5) % Neut # (Auto) 2.8 (1.4-5.7) K/uL Lymph # (Auto) 2.0 (0.6-2.4) K/uL [place] # (Auto) 0.7 (0.0-0.8) K/uL Eos # (Auto) 0.2 (0.0-0.7) K/uL Baso # (Auto) 0.0 (0.0-0.1) K/uL Nucleated RBC % 0.0 /100WBC Nucleated RBCs # 0 K/uL Sodium 144 (136-148) mmol/L Potassium 3.9 (3.5-5.1) mmol/L Chloride 105 (98-107) mmol/L Carbon Dioxide 29.5 (21.0-32.0) mmol/L BUN 10 (7.0-18.0) mg/dL Creatinine 1.3 (0.8-1.3) mg/dL Est Cr Clr Drug Dosing 74.15 mL/min Estimated GFR (MDRD) > 60.0 ml/min Glucose 100 (74-106) mg/dL Calcium 8.4 L (8.5-10.1) mg/dL Magnesium 1.7 L (1.8-2.4) mg/dL Total Bilirubin 0.4 (0.2-1.0) mg/dL AST 26 (15-37) IU/L ALT 64 H (14-63) IU/L Alkaline Phosphatase 50 (46-116) U/L Creatine Kinase 203 (26-308) U/L Troponin I < 0.050 (0.000-0.056) ng/mL Total Protein 6.8 (6.4-8.2) g/dL Albumin 3.6 (3.4-5.0) g/dL Globulin 3.2 (2.6-4.0) g/dL Albumin/Globulin Ratio 1.1 (0.9-1.6) Meds: Medications Generic Name Dose Route Start Last Admin Trade Name Genaro PRN Reason Stop Dose Admin Sodium Chloride 10 ml 01/01/21 09:17 01/01/21 09:22 Sodium Chloride 0.9% 10 Ml Syringe FLUSH 10 ml ASDIRECTED PRN Administration Keep Vein Open Sodium Chloride 2.5 ml 01/01/21 09:17 01/01/21 09:22 Sodium Chloride 0.9% 2.5 Ml Syringe FLUSH 2.5 ml ASDIRECTED PRN Administration Keep Vein Open Discontinued Medications Generic Name Dose Route Start Last Admin Trade Name Freq PRN Reason Stop Dose Admin Magnesium Sulfate 2 gm in 50 mls @ 50 mls/hr 01/01/21 10:50 01/01/21 11:05 Magnesium Sulfate In Water 2 Gm/50 Ml IV 01/01/21 11:49 50 mls/hr STAT STA Administration Departure - Departure Time of Disposition: 11:52 Disposition: Home, Self-Care 01 Condition: Good Clinical Impression: Neck pain, Weakness, Hypomagnesemia - Discharge Information Instructions: Hypomagnesemia, Weakness, [id number] Referrals: Lobo Hameed MD [Primary Care Provider] - Forms: ED Department Discharge Additional Instructions: Your magnesium was low but should be something that can be controlled with diet or [id number] supplements. [facility] - Primary Care [address] [place] [address] [place] [address] The following information is given to patients seen in the emergency department who are being discharged to home. This information is to outline your options for follow-up care. We provide all patients seen in our emergency department with a follow-up referral. The need for follow-up, as well as the timing and circumstances, are variable depending upon the specifics of your emergency department visit. If you don't have a primary care physician on staff, we will provide you with a referral. We always advise you to contact your personal physician following an emergency department visit to inform them of the circumstance of the visit and for follow-up with them and/or the need for any referrals to a consulting specialist. The emergency department will also refer you to a specialist when appropriate. This referral assures that you have the opportunity for follow-up care with a specialist. All of these measure are taken in an effort to provide you with optimal care, which includes your follow-up. Under all circumstances we always encourage you to contact your private physician who remains a resource for coordinating your care. When calling for follow-up care, please make the office aware that this follow-up is from your recent emergency room visit. If for any reason you are refused follow-up, please contact the [facility] at and asked to speak to the emergency department charge nurse. Sepsis Event Note (ED) - Evaluation Sepsis Screening Result: No Definite Risk - Focused Exam Vital Signs: Vital Signs Temp Pulse Resp BP Pulse Ox 01/01/21 11:45 60 16 115/64 95 01/01/21 11:06 60 16 114/72 96 01/01/21 10:02 67 16 138/57 L 95 01/01/21 09:10 36.1 C 62 16 130/83 95 - My Orders Last 24 Hours: My Active Orders 01/01/21 09:17 EKG Documentation Completion [RC] AM Sodium Chloride 0.9% [Saline Flush] 10 ml FLUSH ASDIRECTED PRN Sodium Chloride 0.9% [Saline Flush] 2.5 ml FLUSH ASDIRECTED PRN Saline Lock Insert [OM.PC] Stat - Assessment/Plan Last 24 Hours: My Active Orders 01/01/21 09:17 EKG Documentation Completion [RC] AM Sodium Chloride 0.9% [Saline Flush] 10 ml FLUSH ASDIRECTED PRN Sodium Chloride 0.9% [Saline Flush] 2.5 ml FLUSH ASDIRECTED PRN Saline Lock Insert [OM.PC] Stat
[2021-01-01 09:52] LABS: BLOOD UREA NITROGEN,BUN 10 mg/dL (7.0-18.0); CARBON DIOXIDE,CO2 29.5 mmol/L (21.0-32.0); CHLORIDE,CL 105 mmol/L (98-107); GLUCOSE RANDOM 100 mg/dL (74-106); POTASSIUM,K 3.9 mmol/L (3.5-5.1); SODIUM,NA 144 mmol/L (136-148)
--- NOTE | 2021-01-01 10:19 | CT ---
Indication: Headache weakness, ventriculoperitoneal shunt. Technique: CT of the head without contrast. Coronal and sagittal reformats. Bone and soft tissue windows. Comparison: 01/15/2015 CT Findings: Stable positioning of the right frontal approach ventriculostomy catheter with tip in the right lower ventricle abutting the septum pellucidum. Stable mild enlargement of the 3rd, lateral, and 4th ventricles. No evidence of acute hydrocephalus. The garcia-white matter differentiation is preserved. No suspicious extra-axial collection or acute intracranial hemorrhage. The basal cisterns are clear. No midline shift. No acute infarct. Calvarium is intact. The orbits, paranasal sinuses, and mastoid air cells are clear. Sigmoid deviation of the nasal septum. Impression: 1. Stable positioning of the right frontal approach ventriculostomy catheter. 2. Similar mild enlargement of the 3rd, lateral, and 4th ventricles, unchanged dating back to 07/18/2014. Please note that all CT scans at this facility use dose modulation, iterative reconstruction, and/or weight-based dosing when appropriate to reduce radiation dose to as low as reasonably achievable. Dictated by Danielito Davidson MD @ 01/01/2021 10:18:[address] Danielito Davidson @ Jan 01 2021 10:18AM
[2021-01-01] MEDS ORDERED: Magnesium Sulfate (4.06 MEQ/ML) 5 GM/10 ML SDV IV STA (10:28)
[2021-01-01] MEDS ORDERED: Magnesium Sulfate/Water 2 GM/50 ML BAG IV STA (10:50)
[2021-01-01] MEDS ORDERED: Magnesium Sulfate/Water 2 GM/50 ML BAG IV ONE (11:00)
[2021-01-01 12:30] VITALS: BP 108/77; PULSE 71
== END 2021-01-01 12:31 | disposition home or self-care (01) ==
LOC: MW.ED 08:56
DX: M54.2 Cervicalgia (principal); R53.1 Weakness; E83.42 Hypomagnesemia; Z88.7 Allergy status to serum and vaccine
CPT/HCPCS: 36415; 70450; 80053; 82550; 83735; 84484; 85025; 93005; 96365; 99285; J3475; 93010; 99283

== ENCOUNTER 2021-10-30 10:02 | Emergency (ER) | payer SELFPAY ==
[2021-10-30] MEDS ORDERED: Sodium Chloride 0.9% 10 ML Syringe FLUSH PRN (10:23)
[2021-10-30] MEDS ORDERED: Sodium Chloride 0.9% 2.5 ML Syringe FLUSH PRN (10:23)
[2021-10-30] MEDS ORDERED: Ketorolac 30 MG/ML SDV IVPUSH ONE (11:05)
[2021-10-30] MEDS ORDERED: Sodium Chloride 0.9% 1,000 ML IV ONE (11:05)
[2021-10-30 11:31] LABS: BLOOD UREA NITROGEN,BUN 13 mg/dL (7.0-18.0); CARBON DIOXIDE,CO2 30.6 mmol/L (21.0-32.0); CHLORIDE,CL 103 mmol/L (98-107); GLUCOSE RANDOM 96 mg/dL (74-106); LIPASE 251 U/L (73-393); POTASSIUM,K 4.3 mmol/L (3.5-5.1); SODIUM,NA 141 mmol/L (136-148)
[2021-10-30 13:23] VITALS: BP 106/75; PULSE 68
== END 2021-10-30 13:23 | disposition home or self-care (01) ==
LOC: MW.ED 10:02
DX: R10.84 Generalized abdominal pain (principal); J45.909 Unspecified asthma, uncomplicated; Z79.899 Other long term (current) drug therapy; Z88.7 Allergy status to serum and vaccine
CPT/HCPCS: 36415; 80053; 81001; 83690; 85025; 96361; 96374; 99284; J1885; J3490; J7030; 99283

== ENCOUNTER 2022-06-05 08:42 | Emergency (ER) | payer BC ==
[2022-06-05] MEDS ORDERED: Sodium Chloride 0.9% 1,000 ML IV ONE (09:08)
[2022-06-05] MEDS ORDERED: Ketorolac 30 MG/ML SDV IVPUSH ONE (09:08)
[2022-06-05] MEDS ORDERED: Albuterol/Ipratropium 3.0-0.5 MG/3 ML Neb Soln NEB ONE (09:08)
[2022-06-05 09:59] LABS: BLOOD UREA NITROGEN,BUN 15 mg/dL (7.0-18.0); CARBON DIOXIDE,CO2 28.1 mmol/L (21.0-32.0); CHLORIDE,CL 104 mmol/L (98-107); GLUCOSE RANDOM 105 mg/dL (74-106); POTASSIUM,K 3.9 mmol/L (3.5-5.1); SODIUM,NA 138 mmol/L (136-148)
[2022-06-05 10:03] LABS: ESTIMATED GFR 80 mL/min (>60)
[2022-06-05 10:53] LABS: CORONAVIRUS COVID-19 NAA NEGATIVE (NEGATIVE); INFLUENZA A NAA POSITIVE (NEGATIVE); INFLUENZA B NAA NEGATIVE (NEGATIVE); RESPIRATORY SYNCYTIAL VIR NAA NEGATIVE (NEGATIVE)
[2022-06-05 11:08] VITALS: BP 130/83
[2022-06-05 11:21] VITALS: PULSE 85
== END 2022-06-05 11:21 | disposition home or self-care (01) ==
LOC: MW.ED 08:42
DX: J11.1 Influenza due to unidentified influenza virus with other respiratory manifestations (principal); J45.909 Unspecified asthma, uncomplicated; Z88.7 Allergy status to serum and vaccine; Z79.899 Other long term (current) drug therapy; Z20.822 Contact with and (suspected) exposure to COVID-19
CPT/HCPCS: 0241U; 36415; 71045; 80053; 84484; 85025; 85379; 86140; 93005; 96361; 96374; 99284; J1885; J7030; J7620-GY

== ENCOUNTER 2022-12-04 14:44 | Emergency (ER) | payer BC, OTHER ==
[2022-12-04 14:55] VITALS: BP 116/72; PULSE 76
[2022-12-04] MEDS ORDERED: Lidocaine 1% 5 ML VIAL INJECT STA (15:08)
[2022-12-04] MEDS ORDERED: Diphtheria/Tetanus Toxoids,Adult (Td) 0.5 ML Syringe IM ONE ×2 (15:16→15:35)
== END 2022-12-04 16:42 | disposition home or self-care (01) ==
LOC: MW.ED 14:44
DX: S51.812A Laceration without foreign body of left forearm, initial encounter (principal); J45.909 Unspecified asthma, uncomplicated; Z79.51 Long term (current) use of inhaled steroids; Z88.7 Allergy status to serum and vaccine; Z23 Encounter for immunization; W26.0XXA Contact with knife, initial encounter
CPT/HCPCS: 12001; 90471; 90714; 99282-25; 99283; J3490

== ENCOUNTER 2022-12-12 08:19 | Emergency (ER) | payer OTHER ==
[2022-12-12 09:27] VITALS: BP 122/84; PULSE 83
== END 2022-12-12 09:25 | disposition home or self-care (01) ==
LOC: MW.ED 08:19
DX: S61.411D Laceration without foreign body of right hand, subsequent encounter (principal); Z88.7 Allergy status to serum and vaccine; Z48.02 Encounter for removal of sutures
CPT/HCPCS: 99283